=== PATIENT | male | born 1970 | race Caucasian/White ===

== ENCOUNTER 2017-02-01 22:40 | Emergency (ER) | END 2017-02-02 04:36 | disposition home or self-care (01) | DX: S06.0X1A Concussion with loss of consciousness of 30 minutes or less, initial encounter (principal); S16.1XXA Strain of muscle, fascia and tendon at neck level, initial encounter; S33.5XXA Sprain of ligaments of lumbar spine, initial encounter; S20.219A Contusion of unspecified front wall of thorax, initial encounter; S89.92XA Unspecified injury of left lower leg, initial encounter; V43.52XA Car driver injured in collision with other type car in traffic accident, initial encounter ==

== ENCOUNTER 2018-07-27 18:50 | Inpatient (IN) | END 2018-08-02 16:25 | disposition home or self-care (01) | DRG 871 ==